=== PATIENT | female | born 1960 | race Two or more races ===

== ENCOUNTER 2023-04-17 08:13 | Inpatient (IN) | payer OTHER ==
[~2023-04-17] VITALS: Ht 149.9 cm; Wt 50.8 kg
[2023-04-18] MEDS ORDERED: PERCOCET 10-321 EACH PO (14:19)
[2023-04-25] MEDS ORDERED: MORPHINE SULFAT30 M4 (10:39)
[2023-04-25] MEDS ORDERED: METOCLOPRAMIDE H5 MG (10:59)
[2023-04-25] MEDS ORDERED: FENTANYL1 EAC4 (10:59)
[2023-04-25] MEDS ORDERED: FAMOTIDINE20 MG/2 M1 (10:59)
[2023-04-25] MEDS ORDERED: GABAPENTIN300 M2 (10:59)
[2023-04-25] MEDS ORDERED: BUPROPION XL150 MG (11:00)
== END 2023-05-01 15:06 | disposition home or self-care (01) | DRG 330 ==
LOC: SURG 04-21 06:11 → O/R 04-21 06:11 → SURG 04-21 07:00
PROVIDERS: Internal Medicine; Surgery; ADMIT Surgery; ATTEND Surgery
PROC: 0D1L0Z4 Bypass Transverse Colon to Cutaneous, Open Approach (ICD-10-PCS; principal; 2023-04-21 07:00)
PROC: 30233N1 Transfusion of Nonautologous Red Blood Cells into Peripheral Vein, Percutaneous Approach (ICD-10-PCS; 2023-04-23)
PROC: BW21ZZZ Computerized Tomography (CT Scan) of Abdomen and Pelvis (ICD-10-PCS; 2023-04-26)
PROC: 0T9130Z Drainage of Left Kidney with Drainage Device, Percutaneous Approach (ICD-10-PCS; 2023-04-26)
DX: K56.691 Other complete intestinal obstruction (principal); C77.1 Secondary and unspecified malignant neoplasm of intrathoracic lymph nodes; C79.82 Secondary malignant neoplasm of genital organs; N13.1 Hydronephrosis with ureteral stricture, not elsewhere classified; R10.32 Left lower quadrant pain; D64.89 Other specified anemias

== ENCOUNTER 2023-10-10 09:54 | Inpatient (IN) | payer OTHER ==
[~2023-10-10] VITALS: Ht 157.5 cm; Wt 45.4 kg
[~2023-10-10 09:54] MED LIST: BUPROPION XL150 MG; FAMOTIDINE20 MG/2 M1; FENTANYL1 EAC4; GABAPENTIN300 M2; METOCLOPRAMIDE H5 MG; MORPHINE SULFAT30 M4; PERCOCET 10-321 EACH PO
[2023-10-10] MEDS ORDERED: 0.9 % SODIUM CHLORIDE 1,000 ML IV STA (10:59)
[2023-10-10 11:43] LABS: HEMATOCRIT 41.4 % (36.0-45.00); HEMOGLOBIN 14.1 g/dL (12.0-15.00); MEAN CELL VOLUME 91.3 fL (80.00-100.00); PLATELET COUNT 176 K/uL (150-450); RED BLOOD COUNT 4.54 M/uL (4.00-6.00)
[2023-10-10 12:13] LABS: ALBUMIN 1.9 gm/dL (3.4-5.0); BILIRUBIN TOTAL 0.63 mg/dL (0.3-1.2); BILIRUBIN,CONJUGATED 0.25 mg/dL (0.0-0.2); BILIRUBIN,UNCONJUGATED 0.38 mg/dL (0.0-0.6); CALCIUM 9.3 mg/dL (8.5-10.1); CREATININE SERUM 1.17 mg/dL (0.55-1.02); GFR 46.72; POTASSIUM 3.6 mEq/L (3.5-5.1); TOTAL PROTEIN 5.9 gm/dL (6.4-8.2)
[2023-10-10] MEDS ORDERED: CLOPIDOGREL BISULFATE 75 MG TABLET PO STA (15:11)
[2023-10-10] MEDS ORDERED: PIPERACILLIN/TAZOBACTAM SODIUM 3.375 GM in 0.9 % SODIUM CHLORIDE 100 ML IV SCH (18:10)
[2023-10-10] MEDS ORDERED: ENOXAPARIN SODIUM 40 MG/0.4 ML SYRINGE SUBCUTANEO SCH (18:12)
[2023-10-10] MEDS ORDERED: OxyCODONE HCL/APAP UD (PERCOCET) PO PRN (18:15)
[2023-10-10] MEDS ORDERED: ACETAMINOPHEN 500 MG GEL..CAP PO PRN (18:15)
[2023-10-10] MEDS ORDERED: ONDANSETRON HCL 4 MG in 0.9 % SODIUM CHLORIDE 50 ML IV PRN (18:15)
[2023-10-10] MEDS ORDERED: 0.9 % SODIUM CHLORIDE 1,000 ML IV SCH (18:15)
[2023-10-10] MEDS ORDERED: AA 4.25%/CAL/LYTES/DEXT 5% 1,000 ML PERIFERAL SCH (19:53)
[2023-10-10 22:28] LABS: ABG PH 7.423 (7.35-7.45); ABG PO2 101.2 mmHg (80-100); ABG pCO2 33.4 mmHg (35-45); BASE EXCESS -2.2 mmol/l; BICARBONATE 21.3 mmol/l (23-25); SaO2 97.9 %
[2023-10-10 22:29] LABS: Tco2 22.3 mmol/l
[2023-10-10 22:30] LABS: o2 21 %; puncture site RADIAL RIGHT
[2023-10-10 22:31] LABS: allen test SATISFACTORY
[2023-10-11 06:09] LABS: URINE APPEARANCE Turbid; URINE BILIRRUBIN Moderate (NEGATIVE); URINE BLOOD Moderate; URINE COLOR Orange; URINE GLUCOSE Negative (NEGATIVE); URINE LEUKOCYTE Large; URINE NITRATE Positive
[2023-10-11 06:12] LABS: URINE EPITHELIAL CELLS 119.3 uL (0.0-38.8); URINE WBC 1331.2 uL (0.0-23.2)
[2023-10-11 06:27] LABS: URINE BACTERIA > 9821.2 uL (0.0-1933); URINE PROTEIN 100 (NEGATIVE); URINE RBC > 10558.9 uL (0.0-20.8)
[2023-10-11 06:30] LABS: URINE YEAST FEW /hpf
[2023-10-11] MEDS ORDERED: FAMOTIDINE/PF 20 MG in 0.9 % SODIUM CHLORIDE 8 ML IV PUSH SCH (09:00)
[2023-10-11] MEDS ORDERED: GABAPENTIN 300 MG CAPSULE PO SCH (09:00)
[2023-10-11] MEDS ORDERED: LACTOBACILLUS ACIDOPHILUS 1 CAP CAP PO SCH (10:47)
[2023-10-11 14:08] LABS: ALBUMIN 1.7 gm/dL (3.4-5.0); BILIRUBIN TOTAL 0.66 mg/dL (0.3-1.2); CALCIUM 8.7 mg/dL (8.5-10.1); CREATININE SERUM 0.98 mg/dL (0.55-1.02); GFR 57.32; GLOBULINA 3.3 G/DL (2.4-3.5); POTASSIUM 3.17 mEq/L (3.5-5.1)
[2023-10-12 06:30] LABS: HEMATOCRIT 35.6 % (36.0-45.00); HEMOGLOBIN 12.1 g/dL (12.0-15.00); MEAN CORPUSCULAR HEMOGLOBIN 31.6 pg (27.00-32.0); PLATELET COUNT 192 K/uL (150-450); RED BLOOD COUNT 3.82 M/uL (4.00-6.00); RED CELL DISTRIBUTION WIDTH 19.3 % (11.5-14.5)
[2023-10-12] MEDS ORDERED: MAGNESIUM SULFATE IN WATER 50 ML IV ONE (10:15)
[2023-10-12] MEDS ORDERED: POTASSIUM CHLORIDE IN WATER 100 ML IV SCH ×2 (10:16→13:00)
[2023-10-12 14:42] LABS: CALCIUM 8.7 mg/dL (8.5-10.1); CREATININE SERUM 1.02 mg/dL (0.55-1.02); GFR 54.73; MAGNESIUM 2.5 mg/dL (1.8-2.4); POTASSIUM 3.42 mEq/L (3.5-5.1)
[2023-10-13] MEDS ORDERED: BISMUTH SUBSALICYLATE 524 MG/30 ML BLIST.PACK PO PRN (09:00)
[2023-10-13] MEDS ORDERED: POTASSIUM CHLORIDE 20MEQ/100ML H2O PB IV ONE (09:00)
[2023-10-13 11:12] LABS: CALCIUM 8.2 mg/dL (8.5-10.1); CREATININE SERUM 0.65 mg/dL (0.55-1.02); GFR 92.06; POTASSIUM 4.23 mEq/L (3.5-5.1)
[2023-10-13] MEDS ORDERED: OxyCODONE HCL/APAP UD (PERCOCET) PO PRN (20:15)
[2023-10-14 12:45] LABS: HEMATOCRIT 35.6 % (36.0-45.00); HEMOGLOBIN 11.9 g/dL (12.0-15.00); MEAN CELL VOLUME 93.4 fL (80.00-100.00); MEAN CORPUSCULAR HEMOGLOBIN 31.2 pg (27.00-32.0); MEAN CORPUSCULAR HGB CONC 33.4 g/dl (32.0-36.0); PLATELET COUNT 169 K/uL (150-450); RED BLOOD COUNT 3.81 M/uL (4.00-6.00); RED CELL DISTRIBUTION WIDTH 19.6 % (11.5-14.5)
[2023-10-14 13:07] LABS: ALBUMIN 1.4 gm/dL (3.4-5.0); BILIRUBIN TOTAL 0.33 mg/dL (0.3-1.2); CREATININE SERUM 0.62 mg/dL (0.55-1.02); GFR 97.22; GLOBULINA 3.3 G/DL (2.4-3.5); MAGNESIUM 1.8 mg/dL (1.8-2.4); PHOSPHOROUS 2.1 mg/dL (2.5-4.9); POTASSIUM 4.37 mEq/L (3.5-5.1); TOTAL PROTEIN 4.7 gm/dL (6.4-8.2)
[2023-10-14 13:19] LABS: C-REACTIVE PROTEIN 7.95 MG/DL (0.00-0.29)
[2023-10-14] MEDS ORDERED: VANCOMYCIN HCL 1,000 MG VIAL IV SCH (17:00)
[2023-10-15] MEDS ORDERED: VANCOMYCIN HCL 5 MG/ML REDILUIDO IV SCH (17:00)
[2023-10-15] MEDS ORDERED: OxyCODONE HCL/APAP UD (PERCOCET) PO PRN (21:00)
[2023-10-16] MEDS ORDERED: FAMOTIDINE/PF 20 MG/2 ML VIAL ONE ×2 (08:45→22:20)
[2023-10-16 09:58] LABS: PROTHROMBIN TIME 10.5 SECONDS (9.0-11.5)
[2023-10-16] MEDS ORDERED: VANCOMYCIN HCL 5 MG/ML REDILUIDO IV SCH (17:00)
[2023-10-16] MEDS ORDERED: AMINOCAPROIC ACID 1,000 MG in 0.9 % SODIUM CHLORIDE 250 ML IV STA (17:02)
[2023-10-16] MEDS ORDERED: BUPIVACAINE HCL/PF 0.5% 30ML ML ONE (18:47)
[2023-10-16] MEDS ORDERED: IOVERSOL 320 MG/ML - 50 ML VIAL IV ONE (18:47)
[2023-10-16] MEDS ORDERED: FAMOTIDINE/PF 20 MG in 0.9 % SODIUM CHLORIDE 8 ML IV PUSH SCH (21:00)
[2023-10-16] MEDS ORDERED: ENALAPRILAT DIHYDRATE 1.25 MG/ML VIAL IV ONE (23:02)
[2023-10-17] MEDS ORDERED: PIPERACILLIN/TAZOBACTAM SODIUM 3.375 GM VIAL IV ONE (00:07)
[2023-10-18 07:13] LABS: HEMATOCRIT 33.4 % (36.0-45.00); HEMOGLOBIN 11.3 g/dL (12.0-15.00); MEAN CELL VOLUME 93.9 fL (80.00-100.00); MEAN CORPUSCULAR HEMOGLOBIN 31.7 pg (27.00-32.0); MEAN CORPUSCULAR HGB CONC 33.7 g/dl (32.0-36.0); PLATELET COUNT 202 K/uL (150-450); RED BLOOD COUNT 3.56 M/uL (4.00-6.00); RED CELL DISTRIBUTION WIDTH 19.1 % (11.5-14.5)
[2023-10-18 07:36] LABS: ALBUMIN 1.4 gm/dL (3.4-5.0); BILIRUBIN TOTAL 0.28 mg/dL (0.3-1.2); CREATININE SERUM 0.65 mg/dL (0.55-1.02); GFR 92.06; GLOBULINA 3.5 G/DL (2.4-3.5); MAGNESIUM 1.6 mg/dL (1.8-2.4); POTASSIUM 3.96 mEq/L (3.5-5.1); TOTAL PROTEIN 4.9 gm/dL (6.4-8.2)
[2023-10-18 07:37] LABS: C-REACTIVE PROTEIN 9.68 MG/DL (0.00-0.29)
[2023-10-18] MEDS ORDERED: SODIUM CL 0.9% 100 ML IV.SOLN IV ONE (08:31)
[2023-10-18] MEDS ORDERED: ONDANSETRON HCL 2 MG/ML VIAL IV PRN (11:45)
[2023-10-19] MEDS ORDERED: FAMOtidine 20 MG TABLET PO SCH (21:00)
== END 2023-10-19 16:08 | disposition home or self-care (01) | DRG 300 ==
LOC: ER 09:54 → MEDI 18:55 → MEDJ 18:55 → MEDI 10-12 11:26 → MEDJ 10-12 11:27
PROVIDERS: General Practice; Internal Medicine Infectious Disease; Radiology Vascular & Interventional Radiology; ADMIT Internal Medicine; ATTEND Internal Medicine
PROC: BW21YZZ Computerized Tomography (CT Scan) of Abdomen and Pelvis using Other Contrast (ICD-10-PCS; principal; 2023-10-10)
PROC: B54CZZZ Ultrasonography of Left Lower Extremity Veins (ICD-10-PCS; 2023-10-10)
PROC: 4A12X4Z Monitoring of Cardiac Electrical Activity, External Approach (ICD-10-PCS; 2023-10-10)
PROC: 02HV33Z Insertion of Infusion Device into Superior Vena Cava, Percutaneous Approach (ICD-10-PCS; 2023-10-11)
PROC: 0T25X0Z Change Drainage Device in Kidney, External Approach (ICD-10-PCS; 2023-10-16)
DX: I82.422 Acute embolism and thrombosis of left iliac vein (principal); C77.1 Secondary and unspecified malignant neoplasm of intrathoracic lymph nodes; N39.0 Urinary tract infection, site not specified; N13.39 Other hydronephrosis; N32.1 Vesicointestinal fistula; N17.8 Other acute kidney failure; C54.1 Malignant neoplasm of endometrium; E86.0 Dehydration; Z93.6 Other artificial openings of urinary tract status; T83.012A Breakdown (mechanical) of nephrostomy catheter, initial encounter